=== PATIENT | male | born 1970 | race Caucasian/White ===

== ENCOUNTER → 2019-05-09 | Outpatient (CLI) | payer BC, OTHER ==
[~2019-05-09] MED LIST: AMOX-355 PO; HYDR-3454 PO; IBUP800T26 PO; LORA0.5T PO; METO50TA2 PO; RANI150C11 PO; TRAM50TA2 PO; ZLP5T PO
--- NOTE | 2019-05-09 12:23 | Diagnostic Imaging Report ---
PROCEDURE: US carotid duplex, bilateral. TECHNIQUE: Multiple real-time grayscale images were obtained over the carotid arteries in various projections, bilaterally. Additional spectral analysis and color Doppler duplex images were also obtained. INDICATION: CVA. Parameters based on the consensus panel Tsai-Scale and Doppler ultrasound criteria published April 2003, Radiology, Volume 229. DOPPLER (peak systolic velocity M/S Right Left CCA 0.77 1.05 ICA Proximal 0.66 0.78 ICA Mid 0.76 0.79 ICA Distal 0.58 0.71 RATIO 1.0 0.8 ECA 1.43 1.01 VERT 0.34 0.43 FINDINGS: There are no focally elevated velocities in either internal carotid artery. The ICA/CCA ratios are within normal limits, bilaterally. There is antegrade flow in the vertebral arteries, bilaterally. Grayscale images demonstrate minimal carotid plaque, bilaterally. IMPRESSION: Minimal bilateral carotid plaque however spectral analysis shows no evidence of a hemodynamically significant stenosis in either internal carotid artery. Dictated by: Dictated on workstation # [id number]
== END ==
LOC: RAD 10:08
PROVIDERS: ATTEND Internal Medicine Cardiovascular Disease
DX: I63.9 Cerebral infarction, unspecified (principal)
CPT/HCPCS: 93880

== ENCOUNTER → 2019-05-14 | Outpatient (CLI) | payer BC, OTHER | LOC: CARD 07:32 | PROVIDERS: ATTEND Internal Medicine Cardiovascular Disease | DX: I51.7 Cardiomegaly (principal); E78.5 Hyperlipidemia, unspecified; I10 Essential (primary) hypertension; Z86.79 Personal history of other diseases of the circulatory system; Z72.0 Tobacco use | CPT/HCPCS: 93306 ==

== ENCOUNTER → 2019-05-15 | Outpatient (CLI) | payer BC ==
[~2019-05-15] VITALS: Ht 178 cm; Wt 95.0 kg
[~2019-05-15] MED LIST changes: +CATHETER FLUSH 10 ML SYR IV PRN; +REGADENOSON 0.4 MG/5 ML SYR (LEXISCAN) IV ONE
[2019-05-15 09:10] VITALS: BP 162/116
[2019-05-15 09:12] VITALS: BP 166/115
--- NOTE | 2019-05-16 11:27 | STRESS TEST ---
DATE OF SERVICE: 05/15/2019 RESTING AND POST REGADENOSON TECHNETIUM-99M TETROFOSMIN SPECT CT IMAGING ORDERING PHYSICIAN: Dr. Nieves. PRIMARY PHYSICIAN: Dr. Humphries. CLINICAL DIAGNOSIS: Chest discomfort. Baseline images were carried out after injection of 10.43 mCi of technetium-99m Tetrofosmin. This was followed by 0.4 mg regadenoson and 31.7 mCi of technetium-99m Tetrofosmin for stress imaging. The electrocardiogram showed sinus rhythm at baseline and it did not change significantly with the regadenoson infusion. The patient noted some shortness of breath following regadenoson infusion, which resolved in a few minutes. Overall, he tolerated the procedure well. Review of images at rest and following stress does not indicate distinct perfusion defects consistent with significant myocardial ischemia or infarction. Gated images show normal global left ventricular systolic function with normal regional wall motion. Left ventricular ejection fraction is calculated to be 65%. Left ventricular end diastolic volume is 49 mL. TID is absent (1.11). CONCLUSIONS: 1. No evidence of any significant myocardial ischemia or infarction on this study. 2. Normal regional wall motion. 3. Normal global left ventricular systolic function with a calculated ejection fraction of 65%. Job ID: [id number] DocumentID: [id number] Dictated Date: 05/16/2019 09:05:30 Icu Manager Date: 05/16/2019 11:26:33 Dictated By: PRADEEP NIEVES MD, MA, FACP, FACC,
== END ==
LOC: CARD 07:12
PROVIDERS: ATTEND Internal Medicine Cardiovascular Disease
DX: I10 Essential (primary) hypertension (principal); E78.5 Hyperlipidemia, unspecified; R07.89 Other chest pain; Z86.79 Personal history of other diseases of the circulatory system; Z72.0 Tobacco use
CPT/HCPCS: 78452; 93017

== ENCOUNTER 2019-07-27 09:15 | Outpatient (CLI) | payer BC ==
[~2019-07-27] VITALS: Ht 177.8 cm; Wt 100.0 kg
[~2019-07-27 09:15] MED LIST changes: -CATHETER FLUSH 10 ML SYR IV PRN; -REGADENOSON 0.4 MG/5 ML SYR (LEXISCAN) IV ONE
[2019-07-27] MEDS ORDERED: MIRT30TA6 PO (09:29)
[2019-07-27] MEDS ORDERED: TRAM50TA3 PO (09:29)
[2019-07-27] MEDS ORDERED: IBUP-1773 PO (09:29)
[2019-07-27] MEDS ORDERED: ASPI-983 PO (09:29)
[2019-07-27] MEDS ORDERED: PANT40TA3 PO (09:29)
[2019-07-27] MEDS ORDERED: MTP100TCR PO (09:29)
== END 2019-07-27 09:30 | disposition home or self-care (01) ==
LOC: PREOP 09:15
PROVIDERS: ATTEND Surgery
DX: Z01.818 Encounter for other preprocedural examination (principal)

== ENCOUNTER → 2019-08-21 | Outpatient (CLI) | payer BC ==
[~2019-08-21] MED LIST changes: +ASPI-983 PO; +IBUP-1773 PO; +MIRT30TA6 PO; +MTP100TCR PO; +PANT40TA3 PO; +TRAM50TA3 PO
== END ==
LOC: SLEEP 13:01
PROVIDERS: ATTEND Nurse Practitioner
DX: G47.33 Obstructive sleep apnea (adult) (pediatric) (principal)

== ENCOUNTER 2019-08-28 05:35 | Outpatient (CLI) | payer BC ==
[~2019-08-28] VITALS: Ht 177.8 cm; Wt 100.0 kg
== END 2019-08-28 10:47 | disposition home or self-care (01) ==
LOC: PREOP 05:35
PROVIDERS: ATTEND Surgery
DX: Z01.818 Encounter for other preprocedural examination (principal)

== ENCOUNTER 2019-09-04 08:54 | Day surgery (SDC) | payer BC ==
[~2019-09-04] VITALS: Ht 177.8 cm; Wt 100.0 kg
[2019-09-04] MEDS ORDERED: LACTATED RINGERS 1,000 ML IV ONE (08:59)
[2019-09-04] MEDS ORDERED: PROPOFOL INJECTION 50 ML IV ONE (09:15)
[2019-09-04] MEDS ORDERED: MIDAZOLAM 2 MG/2 ML (VERSED) VIAL ONE (09:15)
[2019-09-04] MEDS ORDERED: LACTATED RINGERS 1,000 ML IV STA (09:21)
[2019-09-04 09:30] VITALS: BP 152/110
[2019-09-04] MEDS ORDERED: HURRICAINE EXT TUBE (BENZOCAINE) XX PRN (09:30)
[2019-09-04 10:10] VITALS: BP 138/87
--- NOTE | 2019-09-04 10:14 | Progress Note-Post Operative ---
Post-Operative Progess Note Surgeon (s)/Roto Rooter Operator (s) Surgeon CARMEN CHING DO Roto Rooter Operator: NA Pre-Operative Diagnosis GERD, Screening colonoscopy Post-Operative Diagnosis Reflux esophagitis with normal colon Procedure & Operative Findings Date of Procedure 09/04/19 Procedure Performed/Findings EGD with Biopsies and Colonoscopy Anesthesia Type per NET TECHNICAL ARCHITECT Estimated Blood Loss Estimated blood loss (mL): None Specimens/Packing Specimens Removed Biopsy of the Antrum and the GE Junction CARMEN CHING DO Sep 04, 2019 10:14
[2019-09-04 10:15] VITALS: BP 134/84
[2019-09-04] MEDS ORDERED: SUCR1TAB36 PO (10:16)
--- NOTE | 2019-09-04 10:17 | Discharge Inst-Simple/Standard ---
Discharge Inst-Standard Discharge Medications New, Converted or Re-Newed RX: Transmitted to Pharmacy Patient Instructions/Follow Up Plan of Care/Instructions/FU: 2 weeks Alec Activity as Tolerated: Yes Discharge Diet: Regular Diet CARMEN CHING DO Sep 04, 2019 10:17
[2019-09-04 10:20] VITALS: BP 134/86
[2019-09-04 10:25] VITALS: BP 134/86
[2019-09-04 10:50] VITALS: BP 132/80
--- NOTE | 2019-09-04 14:43 | OPERATIVE REPORT ---
DATE OF SERVICE: 09/04/2019 PREOPERATIVE DIAGNOSES: Gastroesophageal reflux disease and screening colonoscopy. POSTOPERATIVE DIAGNOSIS: Reflux esophagitis, normal colon. PROCEDURES PERFORMED: EGD with biopsies, colonoscopy. SURGEON: Carmen Michael DO. ANESTHESIA: Per PEDIATRIC CARE COORDINATOR. ESTIMATED BLOOD LOSS: None. COMPLICATIONS: None. INDICATIONS: The patient is a 49-year-old male with GERD symptoms and needing screening colonoscopy. He understands risks and benefits of the procedure and wished to proceed with the procedure. Consent was signed in the chart. DESCRIPTION OF PROCEDURE: The patient was taken to the endoscopy suite and placed in a left lateral recumbent position. Timeout was performed. Scope was inserted in the mouth, down the esophagus, stomach and into the duodenum without difficulty. There were no polyps, masses or ulcerations within the duodenum. Scope was slowly retracted back into the stomach where it was further insufflated. Biopsy of the antrum was obtained. There were no polyps, masses or ulcerations. Scope was retroflexed noting no other pathology. Scope was returned to its normal position, slowly withdrawn to the distal esophagus with changes of reflux esophagitis present. Biopsy of the GE junction was obtained. The scope was then slowly retracted back. There were no polyps, masses or ulcerations completely removed, the patient tolerated procedure well. Digital rectal exam was then performed. There were no palpable polyps, masses or ulcerations. Scope was inserted in the rectum, advanced all the way to cecum with minimal difficulty. Prep was adequate. Scope was then slowly retracted back. There were no polyps, masses or ulcerations within the cecum, ascending, transverse, descending and sigmoid colon. Once in the rectum, scope was retroflexed noting no other pathology. Scope was returned to its normal position, slowly withdrawn until completely removed. The patient tolerated procedure well without any complications. He was taken to the recovery room in stable condition. RECOMMENDATIONS: The patient will need a repeat colonoscopy in 10 years unless family history of colon cancer, which then be 5 years, any personal history of colon polyps, would be 5 years. If he has any issues before that, he should be reevaluated at that time. The patient with some reflux esophagitis, will continue Protonix and then add Carafate 1 gram four times a day. We will follow up in the office in 2 to 3 weeks and see how his symptoms are doing. Further recommendations pending biopsy results. Job ID: [id number] DocumentID: [id number] Dictated Date: 09/04/2019 10:15:58 Nurse Auditor Date: 09/04/2019 14:43:02 Dictated By: CARMEN MICHAEL DO
--- NOTE | 2019-09-05 08:01 | Anesthesia-General Post-Op ---
MAC Patient Condition Mental Status/LOC: Same as Preop Cardiovascular: Satisfactory Nausea/Vomiting: Absent Respiratory: Satisfactory Pain: Controlled Complications: Absent Post Op Complications Complications None Follow Up Care/Instructions Patient Instructions None needed. Anesthesiology Discharge Order Discharge Order Patient is doing well, no complaints, stable vital signs, no apparent adverse anesthesia problems. No complications reported per nursing. KAILNA MERCHANT CRNA Sep 05, 2019 08:01
--- OUTSIDE RECORDS SUMMARY | 2019-09-06 09:30 | XMS REPORT | Clinical Summary ---
Author Author User, Jeronimo Gill Organization Jacklyn Humphries DO, FACP Address Unknown Phone Allergies, Adverse Reactions, Alerts Allergy Name Reaction Description Start Date Severity Status Pr ovider XANAX confusion Critical Active Jacklyn Humphries DAYPRO Nausea and Vomiting Mild Active Jacklyn Humphries MORPHINE Hives and not able to breath Critical Active Jacklyn Humphries Conditions or Problems Problem Name Problem Code Onset Date Status Entry Date Provider Comment Standard Description Annotate HEALTH SCREENING V70.0 Resolved Jacklyn santoyo Routine general medical examination at a [facility] facility HYPOGONADISM 257.2 Resolved Jacklyn Humphries Other testicular hypofunction ANEMIA NOS 285.9 Resolved Jacklyn Humphries Anemia, unspecified FATIGUE 780.79 Active Jacklyn Humphries Other malaise and fatigue SMOKER 305.1 Active Jacklyn Humphries Tobacco use disorder HYPERSOMNIA 780.54 Active Jacklyn Humphries Hypersomnia, unspecified LIVER FUNCTION TESTS, ABNORMAL 794.8 Active 08/07 Jacklyn Humphries Nonspecific abnormal results of function study of liver HYPERCHOLESTEROLEMIA 272.0 Active Jacklyn Humphries Pure hypercholesterolemia 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 WHEEZING 786.07 Resolved Jacklyn Humphries Wheezing HYPERTENSION 401.1 Active Jacklyn Humphries Benign essential hypertension HEEL PAIN, LEFT 729.5 Active Jacklyn Almanzar er Pain in limb PRIMARY CENTRAL SLEEP APNEA 327.21 Active Jacklyn Humphries Primary central sleep apnea INSOMNIA 780.52 Active Jacklyn Humphries Insomnia, unspecified ERECTILE DYSFUNCTION, 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 07/22 Jacklyn Humphries Impotence of organic origin CHRONIC PAIN V15.89 Active Jacklyn Humphries Other specified personal history presenting hazards to health HEALTH SCREENING V70.0 Active Jacklyn mullen Routine general medical examination at a health care facility Medication List Medication Instructions Start Date Stop Date Generic Name NDC Status Provider Patient Instruction COZAAR 50 MG TAB 1 po daily LOSARTAN POTASSIUM 242812 79665 Active Jacklyn Humphries NORVASC 5 MG TAB 1 PO Daily AMLODIPINE BESYLATE 47970 302181 Active Kena Melara CIALIS 10 MG TABS 1 PO as directed TADALAFIL 548 35208979 No Longer Active Jacklyn Humphries ATIVAN 0.5 MG TAB 1/2 PO AT HS ONLY LORAZEPAM 64 487580942 No Longer Active Jacklyn Humphries AMBIEN 10 MG TAB 1 PO QHS prn ZOLPIDEM TARTRATE 99917221120 No Longer Active Jacklyn Humphries IBUPROFEN 800 MG TAB 1 po TID prn IBUPROFEN 009981741 30 Active Kena Melara ZANTAC 150 MG TAB 1 po TID RANITIDINE HCL 09852877195 Active Kena Melara REMERON 30 MG TABS 1 PO QHS MIRTAZAPINE 00259277818 A ctive Jacklyn Humphries TOPROL XL 50 MG [id number] 1 PO BID METOPROLOL SUCCINATE 17626595321 Active Jacklyn Humphries WELLBUTRIN SR 150 MG [id number] 1 PO BID BUPRO PION HCL 90496070254 No Longer Active Jacklyn Humphries ULTRAM 50 MG TAB 2 PO QID TRAMADOL HCL 47343661900 Ac tive Jacklyn Humphries ASPIRIN 81 MG TAB 1 PO daily ASPIRIN 37668705273 Active Jacklyn Humphries Vital Signs Date Name Value Unit Range Description blood pressure, diastolic - 8462-4 82 mm[Hg] BP marks blood pressure, systolic - 8480-6 130 mm[Hg] BP sys pulse rate E&M - 8867-4 64 /min H eart rate respiratory rate E&M - 9279-1 14 /min Resp rate temperature E&M 98.6 [degF] Body temp erature weight E&M - 3141-9 200 [lb_av] Weigh t Measured blood pressure, diastolic - 8462-4 80 mm[Hg] BP marks blood pressure, systolic - 8480-6 138 mm[Hg] BP sys pulse rate E&M - 8867-4 70 /min H eart rate respiratory rate E&M - 9279-1 14 /min Resp rate temperature E&M 98.6 [degF] Body temp erature weight E&M - 3141-9 195 [lb_av] Weigh t Measured blood pressure, diastolic - 8462-4 80 mm[Hg] BP marks blood pressure, systolic - 8480-6 130 mm[Hg] BP sys pulse rate E&M - 8867-4 72 /min H eart rate respiratory rate E&M - 9279-1 14 /min Resp rate weight E&M - 3141-9 195 [lb_av] Weigh t Measured blood pressure, diastolic - 8462-4 85 mm[Hg] BP marks blood pressure, systolic - 8480-6 160 mm[Hg] BP sys pulse rate E&M - 8867-4 84 /min H eart rate respiratory rate E&M - 9279-1 14 /min Resp rate temperature E&M 98.6 [degF] Body temp erature weight E&M - 3141-9 190 [lb_av] Weigh t Measured blood pressure, diastolic - 8462-4 86 mm[Hg] BP marks blood pressure, systolic - 8480-6 130 mm[Hg] BP sys pulse rate E&M - 8867-4 88 /min H eart rate respiratory rate E&M - 9279-1 14 /min Resp rate temperature E&M 98.6 [degF] Body temp erature weight E&M - 3141-9 195 [lb_av] Weigh t Measured blood pressure, diastolic - 8462-4 110 mm[Hg] BP marks blood pressure, systolic - 8480-6 148 mm[Hg] BP sys pulse rate E&M - 8867-4 84 /min H eart rate respiratory rate E&M - 9279-1 14 /min Resp rate temperature E&M 98.6 [degF] Body temp erature weight E&M - 3141-9 196 [lb_av] Weigh t Measured blood pressure, diastolic - 8462-4 90 mm[Hg] BP marks blood pressure, systolic - 8480-6 158 mm[Hg] BP sys pulse rate E&M - 8867-4 84 /min H eart rate respiratory rate E&M - 9279-1 14 /min Resp rate weight E&M - 3141-9 196 [lb_av] Weigh t Measured blood pressure, diastolic - 8462-4 80 mm[Hg] BP marks blood pressure, systolic - 8480-6 150 mm[Hg] BP sys pulse rate E&M - 8867-4 84 /min H eart rate respiratory rate E&M - 9279-1 14 /min Resp rate temperature E&M 98.6 [degF] Body temp erature weight E&M - 3141-9 195 [lb_av] Weigh t Measured blood pressure, diastolic - 8462-4 82 mm[Hg] BP marks blood pressure, systolic - 8480-6 130 mm[Hg] BP sys pulse rate E&M - 8867-4 72 /min H eart rate respiratory rate E&M - 9279-1 14 /min Resp rate temperature E&M 98.6 [degF] Body temp erature weight E&M - 3141-9 204 [lb_av] Weigh t Measured blood pressure, diastolic - 8462-4 92 mm[Hg] BP marks blood pressure, systolic - 8480-6 162 mm[Hg] BP sys pulse rate E&M - 8867-4 80 /min H eart rate respiratory rate E&M - 9279-1 12 /min Resp rate weight E&M - 3141-9 206 [lb_av] Weigh t Measured blood pressure, diastolic - 8462-4 80 mm[Hg] BP marks blood pressure, systolic - 8480-6 135 mm[Hg] BP sys pulse rate E&M - 8867-4 68 /min H eart rate respiratory rate E&M - 9279-1 14 /min Resp rate temperature E&M 98.6 [degF] Body temp erature weight E&M - 3141-9 205 [lb_av] Weigh t Measured Diagnostic Results Date Name Value Unit Range Description Clinical Lists Update: CBC,CMP,FLP,TSH - Chemistry Estimated Glomerular Filtration Rate (calc) 79 mL/ min/1.73m2 glucose, plasma fasting 97 mg/dL albumin, serum 4.6 g/dL alkaline phosphatase, serum 45 U/L urea nitrogen, blood 18 mg/dL calcium, serum 9.9 mg/dL chloride, serum 103 mmol/L cholesterol, serum 187 mg/dL cholesterol/HDL ratio, serum, percent 6.4 sodium, serum 138 mmol/L triglyceride, serum, fasting 262 mg/dL bilirubin, serum, total 0.4 mg/dL alanine aminotransferase (SGPT), serum 19 U/L aspartate aminotransferase (SGOT), serum 21 U/L protein, total, serum 7.1 g/dL potassium, serum 4.0 mmol/L LDL cholesterol, serum 106 mg/dL thyroid stimulating hormone, serum 3.34 u[iU]/mL HDL cholesterol, serum 29 mg/dL creatinine, serum 1.12 mg/dL carbon dioxide, venous blood 26 mmol/L Clinical Lists Update: CBC,CMP,FLP,TSH - Hematology platelet count 292 10*3/mm3 erythrocyte (RBC) count 4.77 10*6/mm3 leukocyte count, blood 9.3 10*3/mm3 mean corpuscular volume, RBC 91.3 fL red blood cell distribution width 12.8 % hemoglobin, blood 14.4 g/dL hematocrit, blood 43.6 % Encounters Code Encounter Date Provider Facility CPT-02746 Ofc Vst, Est Level III 19:45:23 INES Humphries DO, FACP CPT-67183 Ofc Vst, Est Level III 16:57:12 CDT Jacklyn S max Greyi Alphonso Humphries, DO, FACP CPT-18420 Ofc Vst, Est Level III 21:07:09 CDT Jacklyn S max Humphries Jacklyn S Humphries, DO, FACP CPT-31336 Ofc Vst, Est Level III 13:23:06 MASKING MACHINE OPERATOR Jacklyn S max Humphries Jacklyn S Humphries, DO, FACP CPT-46031 Ofc Vst, Est Level IV 17:29:48 MASKING MACHINE OPERATOR Jacklyn Sheri Humphries Jacklyn S Humphries, DO, FACP CPT-68677 Ofc Vst, Est Level III 16:43:59 MASKING MACHINE OPERATOR Jacklyn Alphonso Greyi Alphonso Humphries, DO, FACP CPT-62650 Ofc Vst, Est Level III 14:53:23 MASKING MACHINE OPERATOR Jacklyn S max Greyi S Humphries, DO, FACP CPT-87141 Ofc Vst, Est Level III 12:16:47 CDT Jacklyn S max Greyi S Humphries, DO, FACP CPT-84081 Ofc Vst, Est Level III 15:17:22 CDT Jacklyn S max Greyi S Humphries, DO, FACP CPT-42491 Ofc Vst, Est Level IV 17:16:46 CDT Jacklyn Sheri Greyi S Humphries, DO, FACP CPT-06809 Ofc Vst, Est Level III 10:06:40 CDT Jacklyn S max Kimbroughner Jacklyn S Humphries, DO, FACP CPT-24997 Ofc Vst, Est Level III 14:50:11 CDT Jacklyn S max Kimbroughner Jacklyn S Humphries, DO, FACP CPT-02427 Ofc Vst, Est Level IV 19:37:51 MASKING MACHINE OPERATOR Jacklyn Humphries [facility] Procedures Code Procedure Name Date Entry Date Standard Desc ription CPT-33826 Preventive, Est, (40-64) 16:40:26 CDT 12/16 CPT-65777 Preventive, New, (40-64) 14:23:03 MASKING MACHINE OPERATOR 07/30
--- OUTSIDE RECORDS SUMMARY | 2019-09-06 09:30 | XMS REPORT | Clinical Summary ---
[...] santoyo Routine general medical examination at a [facility] facility HYPOGONADISM 257.2 Resolved Jacklyn Humphries Other [...] MG TAB 1 po daily LOSARTAN POTASSIUM 892789 30135 Active Jacklyn Humphries NORVASC 5 MG TAB 1 PO Daily AMLODIPINE BESYLATE 01605 899611 Active Jacklyn Humphries CIALIS 10 MG TABS 1 PO as directed TADALAFIL 548 99010725 No Longer Active Jacklyn Humphries ATIVAN 0.5 MG TAB 1/2 PO AT HS ONLY LORAZEPAM 64 237588705 No Longer Active Jacklyn Humphries AMBIEN 10 MG TAB 1 PO QHS prn ZOLPIDEM TARTRATE 93224036473 No Longer Active Jacklyn Humphries IBUPROFEN 800 MG TAB 1 po TID prn IBUPROFEN 147464503 30 Active Jacklyn Humphries ZANTAC 150 MG TAB 1 po TID RANITIDINE HCL 59558942811 Active Kena Melara REMERON 30 MG TABS 1 PO QHS MIRTAZAPINE 60220307187 A ctive Jacklyn Humphries TOPROL XL 50 MG [id number]-TAL 1 PO BID METOPROLOL SUCCINATE 81003486919 Active Jacklyn Humphries WELLBUTRIN SR 150 MG [id number] 1 PO BID BUPRO PION HCL 74598526264 No Longer Active Jacklyn Humphries ULTRAM 50 MG TAB 2 PO QID TRAMADOL HCL 36036238801 Ac tive Jacklyn Humphries ASPIRIN 81 MG TAB 1 PO daily ASPIRIN 63833117622 Active Jacklyn Humphries Vital Signs Date Name Value Unit Range Description blood pressure, diastolic - 8462-4 80 mm[Hg] [...] % Encounters Code Encounter Date Provider Facility CPT-51234 Ofc Vst, Est Level III 16:57:12 CDT Jacklyn Humphries DO, FACP CPT-67164 Ofc Vst, Est Level III 21:07:09 CDT Jacklyn Humphries DO, FACP CPT-86216 Ofc Vst, Est Level III 13:23:06 CORPORATE STRATEGY INTERN Jacklyn Humphries DO, FACP CPT-29203 Ofc Vst, Est Level IV 17:29:48 CORPORATE STRATEGY INTERN Jacklyn Humphries DO, FACP CPT-75784 Ofc Vst, Est Level III 16:43:59 CORPORATE STRATEGY INTERN Jacklyn Alphonso Werner Humphries, DO, FACP CPT-36201 Ofc Vst, Est Level III 14:53:23 CORPORATE STRATEGY INTERN Jacklyn Alphonso Werner Humphries, DO, FACP CPT-95066 Ofc Vst, Est Level III 12:16:47 CDT Jacklyn Alphonso Werner Humphries, DO, FACP CPT-85779 Ofc Vst, Est Level III 15:17:22 CDT Jacklyn Alphonso Werner Humphries, DO, FACP CPT-86196 Ofc Vst, Est Level IV 17:16:46 CDT Jacklyn Sheri Werner Humphries, DO, FACP CPT-18902 Ofc Vst, Est Level III 10:06:40 CDT Jacklyn Werner Humphries, DO, FACP CPT-26167 Ofc Vst, Est Level III 14:50:11 CDT Jacklyn Alphonso Werner Humphries, DO, FACP CPT-89346 Ofc Vst, Est Level IV 19:37:51 CORPORATE STRATEGY INTERN Jacklyn Humphries [facility] Procedures Code Procedure Name Date Entry Date Standard Desc ription CPT-86099 Preventive, Est, (40-64) 16:40:26 CDT 12/16 CPT-77264 Preventive, New, (40-64) 14:23:03 CORPORATE STRATEGY INTERN 07/30
--- OUTSIDE RECORDS SUMMARY | 2019-09-06 09:30 | XMS REPORT | Clinical Summary ---
[...] santoyo Routine general medical examination at a [facility] facility HYPOGONADISM 257.2 Resolved Jacklyn Humphries Other [...] specified personal history presenting hazards to health Medication List Medication Instructions Start Date Stop Date Generic Name NDC Status Provider Patient Instruction COZAAR 50 MG TAB 1 po daily LOSARTAN POTASSIUM 576028 42755 Active Jacklyn Humphries NORVASC 5 MG TAB 1 PO Daily AMLODIPINE BESYLATE 71443 622111 Active Jacklynoskar Humphries CIALIS 10 MG TABS 1 PO as directed TADALAFIL 548 89990844 No Longer Active Jacklyn Humphries ATIVAN 0.5 MG TAB 1/2 PO AT HS ONLY LORAZEPAM 64 015384564 No Longer Active Jacklyn Humphries AMBIEN 10 MG TAB 1 PO QHS prn ZOLPIDEM TARTRATE 40560180494 No Longer Active Jacklyn Humphries IBUPROFEN 800 MG TAB 1 po TID prn IBUPROFEN 321472378 30 Active Jacklynoskar Humphries ZANTAC 150 MG TAB 1 po TID RANITIDINE HCL 82293646381 Active Kena Melara REMERON 30 MG TABS 1 PO QHS MIRTAZAPINE 02827816223 A ctive Jacklyn Humphries TOPROL XL 50 MG [id number] 1 PO BID METOPROLOL SUCCINATE 37597965295 Active Jacklynoskar Humphries WELLBUTRIN SR 150 MG FP52M-LDL 1 PO BID BUPRO PION HCL 70825589541 No Longer Active Jacklyn Humphries ULTRAM 50 MG TAB 2 PO QID TRAMADOL HCL 03675839664 Ac tive Jacklyn Humphries ASPIRIN 81 MG TAB 1 PO daily ASPIRIN 15808363386 Active Jacklyn Humphries Vital Signs Date Name [...] - 3141-9 205 [lb_av] Weigh t Measured blood pressure, diastolic - 8462-4 92 mm[Hg] BP marks blood pressure, systolic - 8480-6 142 mm[Hg] BP sys pulse rate E&M - 8867-4 80 /min H eart rate respiratory rate E&M - 9279-1 14 /min Resp rate Encounters Code Encounter Date Provider Facility CPT-63693 Ofc Vst, Est Level III 16:57:12 CDT Jacklyn S max Humphries DO, FACP CPT-31110 Ofc Vst, Est Level III 21:07:09 CDT Jacklyn S max Humphries DO, FACP CPT-93338 Ofc Vst, Est Level III 13:23:06 STRING TOP SEALER Jacklyn S max Humphries DO, FACP CPT-98412 Ofc Vst, Est Level IV 17:29:48 STRING TOP SEALER Jacklynoskar Humphries DO, FACP CPT-72044 Ofc Vst, Est Level III 16:43:59 STRING TOP SEALER Jacklyn S uzanne Humphries Jacklyn S Humphries, DO, FACP CPT-43572 Ofc Vst, Est Level III 14:53:23 STRING TOP SEALER Jacklyn Alphonso santana Humphries Jacklyn S Kristel, DO, FACP CPT-89961 Ofc Vst, Est Level III 12:16:47 CDT Jacklyn S max Kimbroughner Jacklyn S Kristel, DO, FACP CPT-43745 Ofc Vst, Est Level III 15:17:22 CDT Jacklyn S max Kimbroughner Jacklyn Alphonso Kristel, DO, FACP CPT-06426 Ofc Vst, Est Level IV 17:16:46 CDT Jacklyn Sheri berman Kristel Jacklyn S Kristel, DO, FACP CPT-26904 Ofc Vst, Est Level III 10:06:40 CDT Jacklyn Alphonso santana Humphries Jacklyn Werner Kristel, DO, FACP CPT-30127 Ofc Vst, Est Level III 14:50:11 CDT Jacklyn S max Werner Kristel, DO, FACP CPT-19921 Ofc Vst, Est Level IV 19:37:51 STRING TOP SEALER Jacklyn berman Kristel [facility] Procedures Code Procedure Name Date Entry Date Standard Desc ription CPT-76159 Cyrus Saldaña, (40-64) 14:23:03 STRING TOP SEALER 07/30
--- OUTSIDE RECORDS SUMMARY | 2019-09-06 09:30 | XMS REPORT | Clinical Summary ---
Author Author [facility] Organization [facility] Address Unknown Phone Unavailable Care Team Providers Care Licensed Midwife Name Role Phone Bry Bell MD PCP Source Comments Some departments are not documenting in the electronic medical record. If you d o not see the information that you expected, contact Release of Information in [facility] Information Management department at [phone] for further assistan ce in locating additional records.[facility] Allergies Not on File Medications Not on file Active Problems Not on file Social History Date Tobacco Use Types Packs/Day Years Used Never Assessed Sex Assigned at Date Recorded Not on file Industry Job Start Date Occupation Not on file Not on file Not on file Travel End Travel History Travel Start No recent travel history available. Last Filed Vital Signs Not on file Plan of Treatment Health Maintenance Due Date Last Done Comments DTAP/TDAP VACCINES (1 - 1980 Tdap) HIV SCREENING 1984 PHYSICAL (COMPREHENSIVE) 1987 EXAM INFLUENZA VACCINE 01/25/2019 COLORECTAL CANCER 2019 SCREENING SHINGLES RECOMBINANT 2019 VACCINE (1 of 2) Results Not on filefrom Last 3 Months
--- OUTSIDE RECORDS SUMMARY | 2019-09-06 09:31 | XMS REPORT | Clinical Summary ---
[...] santoyo Routine general medical examination at a [facility] HYPOGONADISM 257.2 Resolved Jacklyn Humphries Other [...] MG TAB 1 po daily LOSARTAN POTASSIUM 431686 68179 Active Jacklyn Humphries NORVASC 5 MG TAB 1 PO Daily AMLODIPINE BESYLATE 31715 710347 Active Jacklynoskar Humphries CIALIS 10 MG TABS 1 PO as directed TADALAFIL 548 39171965 No Longer Active Jacklyn Humphries ATIVAN 0.5 MG TAB 1/2 PO AT HS ONLY LORAZEPAM 64 830370112 No Longer Active Jacklyn Humphries AMBIEN 10 MG TAB 1 PO QHS prn ZOLPIDEM TARTRATE 50881026469 No Longer Active Jacklyn Humphries IBUPROFEN 800 MG TAB 1 po TID prn IBUPROFEN 377335217 30 Active Jacklynoskar Humphries ZANTAC 150 MG TAB 1 po TID RANITIDINE HCL 49526910731 Active Kena Melara REMERON 30 MG TABS 1 PO QHS MIRTAZAPINE 29373130223 A ctive Jacklyn Humphries TOPROL XL 50 MG [id number] 1 PO BID METOPROLOL SUCCINATE 53052344009 Active Jacklynoskra Humphries WELLBUTRIN SR 150 MG [id number] 1 PO BID BUPRO PION HCL 23189785098 No Longer Active Jacklyn Humphries ULTRAM 50 MG TAB 2 PO QID TRAMADOL HCL 86368471156 Ac tive Jacklyn Humphries ASPIRIN 81 MG TAB 1 PO daily ASPIRIN 72230092250 Active Jacklyn Humphries Vital Signs Date Name [...] rate Encounters Code Encounter Date Provider Facility CPT-48428 Ofc Vst, Est Level III 16:57:12 CDT Jacklyn S max Humphries DO, FACP CPT-10178 Ofc Vst, Est Level III 21:07:09 CDT Jacklyn S max Humphries DO, FACP CPT-00778 Ofc Vst, Est Level III 13:23:06 INSPECTOR SOLDERING Jacklyn S max Humphries DO, FACP CPT-64986 Ofc Vst, Est Level IV 17:29:48 INSPECTOR SOLDERING Jacklynoskar Humphries DO, FACP CPT-31326 Ofc Vst, Est Level III 16:43:59 INSPECTOR SOLDERING Jacklyn S uzanne Humphries Jacklyn S Humphries, DO, FACP CPT-78300 Ofc Vst, Est Level III 14:53:23 INSPECTOR SOLDERING Jacklyn Alphonso santana Humphries Jacklyn S Kristel, DO, FACP CPT-52598 Ofc Vst, Est Level III 12:16:47 CDT Jacklyn S max Kimbroughner Jacklyn S Kristel, DO, FACP CPT-23686 Ofc Vst, Est Level III 15:17:22 CDT Jacklyn S max Kimbroughner Jacklyn Alphonso Kristel, DO, FACP CPT-21904 Ofc Vst, Est Level IV 17:16:46 CDT Jacklyn Sheri berman Kristel Jacklyn S Kristel, DO, FACP CPT-30259 Ofc Vst, Est Level III 10:06:40 CDT Jacklyn Alphonso santana Humphries Jacklyn Werner Kristel, DO, FACP CPT-77723 Ofc Vst, Est Level III 14:50:11 CDT Jacklyn S max Werner Kristel, DO, FACP CPT-38405 Ofc Vst, Est Level IV 19:37:51 INSPECTOR SOLDERING Jacklyn berman Kristel [facility] Procedures Code Procedure Name Date Entry Date Standard Desc ription CPT-72691 Cyrus Saldaña, ([id number]) 14:23:03 INSPECTOR SOLDERING 07/30
--- OUTSIDE RECORDS SUMMARY | 2019-09-06 09:31 | XMS REPORT | Clinical Summary ---
[...] santoyo Routine general medical examination at a [facility] facility HYPOGONADISM 257.2 Resolved Jacklyn Humphries Other [...] MG TAB 1 po daily LOSARTAN POTASSIUM 205490 51211 Active Jacklyn Humphries NORVASC 5 MG TAB 1 PO Daily AMLODIPINE BESYLATE 83814 076063 Active Jacklynoskar Humphries CIALIS 10 MG TABS 1 PO as directed TADALAFIL 548 90182793 No Longer Active Jacklyn Humphries ATIVAN 0.5 MG TAB 1/2 PO AT HS ONLY LORAZEPAM 64 523175063 No Longer Active Jacklyn Humphries AMBIEN 10 MG TAB 1 PO QHS prn ZOLPIDEM TARTRATE 53203989415 No Longer Active Jacklyn Humphries IBUPROFEN 800 MG TAB 1 po TID prn IBUPROFEN 653106098 30 Active Jacklynoskar Humphries ZANTAC 150 MG TAB 1 po TID RANITIDINE HCL 48502548686 Active Kena Melara REMERON 30 MG TABS 1 PO QHS MIRTAZAPINE 35719911884 A ctive Jacklyn Humphries TOPROL XL 50 MG [id number] 1 PO BID METOPROLOL SUCCINATE 62666501540 Active Jacklynoskar Humphries WELLBUTRIN SR 150 MG [id number] 1 PO BID BUPRO PION HCL 11664300905 No Longer Active Jacklyn Humphries ULTRAM 50 MG TAB 2 PO QID TRAMADOL HCL 89407118110 Ac tive Jacklyn Humphries ASPIRIN 81 MG TAB 1 PO daily ASPIRIN 73154418698 Active Jacklyn Humphries Vital Signs Date Name [...] rate Encounters Code Encounter Date Provider Facility CPT-95904 Ofc Vst, Est Level III 16:57:12 CDT Jacklyn S max Humphries DO, FACP CPT-56756 Ofc Vst, Est Level III 21:07:09 CDT Jacklyn S max Humphries DO, FACP CPT-73627 Ofc Vst, Est Level III 13:23:06 PILLOW CLEANER Jacklyn S max Humphries DO, FACP CPT-58249 Ofc Vst, Est Level IV 17:29:48 PILLOW CLEANER Jacklynoskar Humphries DO, FACP CPT-52690 Ofc Vst, Est Level III 16:43:59 PILLOW CLEANER Jacklyn S uzanne Humphries Jacklyn S Humphrise, DO, FACP CPT-75266 Ofc Vst, Est Level III 14:53:23 PILLOW CLEANER Jacklyn Alphonso santana Humphries Jacklyn S Kristel, DO, FACP CPT-69637 Ofc Vst, Est Level III 12:16:47 CDT Jacklyn S max Kimbroughner Jacklyn S Kristel, DO, FACP CPT-22662 Ofc Vst, Est Level III 15:17:22 CDT Jacklyn S max Kimbroughner Jacklyn Alphonso Kristel, DO, FACP CPT-40228 Ofc Vst, Est Level IV 17:16:46 CDT Jacklyn Sheri berman Kristel Jacklyn S Kristel, DO, FACP CPT-09257 Ofc Vst, Est Level III 10:06:40 CDT Jacklyn Alphonso santana Humphries Jacklyn Werner Kristel, DO, FACP CPT-95135 Ofc Vst, Est Level III 14:50:11 CDT Jacklyn S max Werner Kristel, DO, FACP CPT-21605 Ofc Vst, Est Level IV 19:37:51 PILLOW CLEANER Jacklyn berman Kristel [facility] Procedures Code Procedure Name Date Entry Date Standard Desc ription CPT-96276 Cyrus Saldaña, (40-64) 14:23:03 PILLOW CLEANER 07/30
--- OUTSIDE RECORDS SUMMARY | 2019-09-06 09:31 | XMS REPORT | Clinical Summary ---
[...] santoyo Routine general medical examination at a [facility] facility HYPOGONADISM 257.2 Resolved Jacklyn [...] MG TAB 1 po daily LOSARTAN POTASSIUM 463018 00511 Active Jacklyn Humphries NORVASC 5 MG TAB 1 PO Daily AMLODIPINE BESYLATE 59707 833754 Active Jacklynoskar Humphries CIALIS 10 MG TABS 1 PO as directed TADALAFIL 548 22576758 No Longer Active Jacklyn Humphries ATIVAN 0.5 MG TAB 1/2 PO AT HS ONLY LORAZEPAM 64 383676192 No Longer Active Jacklyn Humphries AMBIEN 10 MG TAB 1 PO QHS prn ZOLPIDEM TARTRATE 21642935351 No Longer Active Jacklyn Humphries IBUPROFEN 800 MG TAB 1 po TID prn IBUPROFEN 817532806 30 Active Jacklynoskar Humphries ZANTAC 150 MG TAB 1 po TID RANITIDINE HCL 38919166682 Active Kena Melara REMERON 30 MG TABS 1 PO QHS MIRTAZAPINE 33291122519 A ctive Jacklyn Humphries TOPROL XL 50 MG [id number] 1 PO BID METOPROLOL SUCCINATE 77734351197 Active Jacklynoskar Humphries WELLBUTRIN SR 150 MG [id number] 1 PO BID BUPRO PION HCL 80011756703 No Longer Active Jacklyn Humphries ULTRAM 50 MG TAB 2 PO QID TRAMADOL HCL 06550389634 Ac tive Jacklyn Humphries ASPIRIN 81 MG TAB 1 PO daily ASPIRIN 66571717551 Active Jacklyn Humphries Vital Signs Date Name [...] rate Encounters Code Encounter Date Provider Facility CPT-23805 Ofc Vst, Est Level III 16:57:12 CDT Jacklyn S max Humphries DO, FACP CPT-01562 Ofc Vst, Est Level III 21:07:09 CDT Jacklyn S max Humphries DO, FACP CPT-53476 Ofc Vst, Est Level III 13:23:06 HISTORIOGRAPHY PROFESSOR Jacklyn S max Humphries DO, FACP CPT-21824 Ofc Vst, Est Level IV 17:29:48 HISTORIOGRAPHY PROFESSOR Jacklynoskar Humphries DO, FACP CPT-91417 Ofc Vst, Est Level III 16:43:59 HISTORIOGRAPHY PROFESSOR Jacklyn S uzanne Humphries Jacklyn S Humphries, DO, FACP CPT-85554 Ofc Vst, Est Level III 14:53:23 HISTORIOGRAPHY PROFESSOR Jacklyn Alphonso santana Humphries Jacklyn S Kristel, DO, FACP CPT-00392 Ofc Vst, Est Level III 12:16:47 CDT Jacklyn S max Kimbroughner Jacklyn S Kristel, DO, FACP CPT-79980 Ofc Vst, Est Level III 15:17:22 CDT Jacklyn S max Kimbroughner Jacklyn Alphonso Kristel, DO, FACP CPT-99357 Ofc Vst, Est Level IV 17:16:46 CDT Jacklyn Sheri berman Kristel Jacklyn S Kristel, DO, FACP CPT-18710 Ofc Vst, Est Level III 10:06:40 CDT Jacklyn Alphonso santana Humphries Jacklyn Werner Kristel, DO, FACP CPT-58696 Ofc Vst, Est Level III 14:50:11 CDT Jacklyn S max Werner Kristel, DO, FACP CPT-16164 Ofc Vst, Est Level IV 19:37:51 HISTORIOGRAPHY PROFESSOR Jacklyn berman Kristel [facility] Procedures Code Procedure Name Date Entry Date Standard Desc ription CPT-82239 Cyrus Saldaña, (40-64) 14:23:03 HISTORIOGRAPHY PROFESSOR 07/30
--- OUTSIDE RECORDS SUMMARY | 2019-09-06 09:31 | XMS REPORT | Clinical Summary ---
[...] santoyo Routine general medical examination at a [facility] facility HYPOGONADISM 257.2 Resolved Jacklyn Humphries [...] MG TAB 1 po daily LOSARTAN POTASSIUM 921908 00030 Active Jacklyn Humphries NORVASC 5 MG TAB 1 PO Daily AMLODIPINE BESYLATE 03837 605240 Active Jacklyn Humphries CIALIS 10 MG TABS 1 PO as directed TADALAFIL 548 09353388 No Longer Active Jacklyn Humphries ATIVAN 0.5 MG TAB 1/2 PO AT HS ONLY LORAZEPAM 64 436842155 No Longer Active Jacklyn Humphries AMBIEN 10 MG TAB 1 PO QHS prn ZOLPIDEM TARTRATE 54664874483 No Longer Active Jacklyn Humphries IBUPROFEN 800 MG TAB 1 po TID prn IBUPROFEN 439615715 30 Active Kena Melara ZANTAC 150 MG TAB 1 po TID RANITIDINE HCL 41028694650 Active Kena Melara REMERON 30 MG TABS 1 PO QHS MIRTAZAPINE 87217184611 A ctive Jacklyn Humphries TOPROL XL 50 MG [id number] 1 PO BID METOPROLOL SUCCINATE 22803108798 Active Jacklyn Humphries WELLBUTRIN SR 150 MG [id number] 1 PO BID BUPRO PION HCL 64379639323 No Longer Active Jacklyn Humphries ULTRAM 50 MG TAB 2 PO QID TRAMADOL HCL 75224249904 Ac tive Jacklyn Humphries ASPIRIN 81 MG TAB 1 PO daily ASPIRIN 05059906094 Active Jacklyn Humphries Vital Signs Date Name [...] % Encounters Code Encounter Date Provider Facility CPT-35188 Ofc Vst, Est Level III 19:45:23 INES Humphries DO, FACP CPT-21955 Ofc Vst, Est Level III 16:57:12 CDT Jacklyn S max Kimbroughner Jacklyn Alphonso Humphries, DO, FACP CPT-98166 Ofc Vst, Est Level III 21:07:09 CDT Jacklyn S max Kimbroughner Jacklyn S Humphries, DO, FACP CPT-99197 Ofc Vst, Est Level III 13:23:06 CYBER SECURITY CONSULTANT Jacklyn S max Kimbroughner Jacklyn S Humphries, DO, FACP CPT-99860 Ofc Vst, Est Level IV 17:29:48 CYBER SECURITY CONSULTANT Jacklyn Sheri Kimbroughner Jacklyn S Humphries, DO, FACP CPT-54463 Ofc Vst, Est Level III 16:43:59 CYBER SECURITY CONSULTANT Jacklyn S max Greyi S Humphries, DO, FACP CPT-13978 Ofc Vst, Est Level III 14:53:23 CYBER SECURITY CONSULTANT Jacklyn S max Greyi S Humphries, DO, FACP CPT-96884 Ofc Vst, Est Level III 12:16:47 CDT Jacklyn S max Greyi S Humphries, DO, FACP CPT-32250 Ofc Vst, Est Level III 15:17:22 CDT Jacklyn S max Greyi S Humphries, DO, FACP CPT-90514 Ofc Vst, Est Level IV 17:16:46 CDT Jacklyn Sheri Greyi S Humphries, DO, FACP CPT-47074 Ofc Vst, Est Level III 10:06:40 CDT Jacklyn S max Kimbroughner Jacklyn S Humphries, DO, FACP CPT-50884 Ofc Vst, Est Level III 14:50:11 CDT Jacklyn S javade Humphries Jacklyn S Humphries, DO, FACP CPT-11852 Ofc Vst, Est Level IV 19:37:51 CYBER SECURITY CONSULTANT Jacklyn Sheri Humphries [facility] Procedures Code Procedure Name Date Entry Date Standard Desc ription CPT-20765 Preventive, Est, (40-64) 16:40:26 CDT 12/16 CPT-81619 Preventive, New, (40-64) 14:23:03 CYBER SECURITY CONSULTANT 07/30
--- OUTSIDE RECORDS SUMMARY | 2019-09-06 09:31 | XMS REPORT | Clinical Summary ---
[...] santoyo Routine general medical examination at a [facility] facility HYPOGONADISM 257.2 Resolved Jacklyn Humphries [...] MG TAB 1 po daily LOSARTAN POTASSIUM 899233 56266 Active Jacklyn Humphries NORVASC 5 MG TAB 1 PO Daily AMLODIPINE BESYLATE 80042 574239 Active Jacklynoskar Humphries CIALIS 10 MG TABS 1 PO as directed TADALAFIL 548 87504677 No Longer Active Jacklyn Humphries ATIVAN 0.5 MG TAB 1/2 PO AT HS ONLY LORAZEPAM 64 643305627 No Longer Active Jacklyn Humphries AMBIEN 10 MG TAB 1 PO QHS prn ZOLPIDEM TARTRATE 23715785930 No Longer Active Jacklyn Humphries IBUPROFEN 800 MG TAB 1 po TID prn IBUPROFEN 668387541 30 Active Jacklynoskar Humphries ZANTAC 150 MG TAB 1 po TID RANITIDINE HCL 39406872624 Active Kena Melara REMERON 30 MG TABS 1 PO QHS MIRTAZAPINE 22426659350 A ctive Jacklyn Humphries TOPROL XL 50 MG [id number] 1 PO BID METOPROLOL SUCCINATE 81550538333 Active Jacklynoskar Humphries WELLBUTRIN SR 150 MG AD72O-DYY 1 PO BID BUPRO PION HCL 33919797949 No Longer Active Jacklyn Humphries ULTRAM 50 MG TAB 2 PO QID TRAMADOL HCL 31484347154 Ac tive Jacklyn Humphries ASPIRIN 81 MG TAB 1 PO daily ASPIRIN 12627390254 Active Jacklyn Humphries Vital Signs Date Name [...] pressure, diastolic - 8462-4 90 mm[Hg] BP mraks blood pressure, systolic - 8480-6 158 mm[Hg] [...] rate Encounters Code Encounter Date Provider Facility CPT-02381 Ofc Vst, Est Level III 16:57:12 CDT Jacklyn S max Humphries DO, FACP CPT-72969 Ofc Vst, Est Level III 21:07:09 CDT Jacklyn S max Humphries DO, FACP CPT-93719 Ofc Vst, Est Level III 13:23:06 MULTI OPERATION MACHINE OPERATOR Jacklyn S max Humphries DO, FACP CPT-83618 Ofc Vst, Est Level IV 17:29:48 MULTI OPERATION MACHINE OPERATOR Jacklynoskar Humphries DO, FACP CPT-94518 Ofc Vst, Est Level III 16:43:59 MULTI OPERATION MACHINE OPERATOR Jacklyn S uzanne Humphries Jacklyn S Humphries, DO, FACP CPT-41166 Ofc Vst, Est Level III 14:53:23 MULTI OPERATION MACHINE OPERATOR Jacklyn Alphonso santana Humphries Jacklyn S Kristel, DO, FACP CPT-86416 Ofc Vst, Est Level III 12:16:47 CDT Jacklyn S max Kimbroughner Jacklyn S Kristel, DO, FACP CPT-59544 Ofc Vst, Est Level III 15:17:22 CDT Jacklyn S max Kimbroughner Jacklyn Alphonso Kristel, DO, FACP CPT-28311 Ofc Vst, Est Level IV 17:16:46 CDT Jacklyn Sheri berman Kristel Jacklyn S Kristel, DO, FACP CPT-21055 Ofc Vst, Est Level III 10:06:40 CDT Jacklyn Alphonso santana Humphries Jacklyn Werner Kristel, DO, FACP CPT-87882 Ofc Vst, Est Level III 14:50:11 CDT Jacklyn S max Werner Kristel, DO, FACP CPT-27984 Ofc Vst, Est Level IV 19:37:51 MULTI OPERATION MACHINE OPERATOR Jacklyn berman Kristel [facility] Procedures Code Procedure Name Date Entry Date Standard Desc ription CPT-28864 Cyrsu Saldaña, (40-64) 14:23:03 MULTI OPERATION MACHINE OPERATOR 07/30
--- OUTSIDE RECORDS SUMMARY | 2019-09-06 09:31 | XMS REPORT | Clinical Summary ---
[...] santoyo Routine general medical examination at a [facility] facility HYPOGONADISM 257.2 Resolved Jacklyn Humphries Other [...] limb PRIMARY CENTRAL SLEEP APNEA 327.21 Active aJcklyn Humphries Primary central sleep apnea INSOMNIA 780.52 [...] MG TAB 1 po daily LOSARTAN POTASSIUM 656403 11509 Active Jacklyn Humphries NORVASC 5 MG TAB 1 PO Daily AMLODIPINE BESYLATE 48182 033693 Active Jacklyn Humphries CIALIS 10 MG TABS 1 PO as directed TADALAFIL 548 93641772 No Longer Active Jacklyn Humphries ATIVAN 0.5 MG TAB 1/2 PO AT HS ONLY LORAZEPAM 64 403226055 No Longer Active Jacklyn Humphries AMBIEN 10 MG TAB 1 PO QHS prn ZOLPIDEM TARTRATE 69000090635 No Longer Active Jacklyn Humphries IBUPROFEN 800 MG TAB 1 po TID prn IBUPROFEN 751805811 30 Active Jacklyn Humphries ZANTAC 150 MG TAB 1 po TID RANITIDINE HCL 67599984791 Active Kena Melara REMERON 30 MG TABS 1 PO QHS MIRTAZAPINE 31948119263 A ctive Jacklyn Humphries TOPROL XL 50 MG [id number] 1 PO BID METOPROLOL SUCCINATE 59568882374 Active Jacklyn Humphries WELLBUTRIN SR 150 MG ZZ37E-CIE 1 PO BID BUPRO PION HCL 13052469784 No Longer Active Jacklyn Humphries ULTRAM 50 MG TAB 2 PO QID TRAMADOL HCL 69739173151 Ac tive Jacklyn Humphries ASPIRIN 81 MG TAB 1 PO daily ASPIRIN 64547712860 Active Jacklyn Humphries Vital Signs Date Name [...] % Encounters Code Encounter Date Provider Facility CPT-12854 Ofc Vst, Est Level III 16:57:12 CDT Jacklyn Humphries DO, FACP CPT-04376 Ofc Vst, Est Level III 21:07:09 CDT Jacklyn Humphries DO, FACP CPT-38483 Ofc Vst, Est Level III 13:23:06 STAFFING OPERATIONS MANAGER Jacklyn Humphries DO, FACP CPT-80049 Ofc Vst, Est Level IV 17:29:48 STAFFING OPERATIONS MANAGER Jacklyn Humphries DO, FACP CPT-53196 Ofc Vst, Est Level III 16:43:59 STAFFING OPERATIONS MANAGER Jacklyn Alphonso Werner Humphries, DO, FACP CPT-27915 Ofc Vst, Est Level III 14:53:23 STAFFING OPERATIONS MANAGER Jacklyn Alphonso Werner Humphries, DO, FACP CPT-47879 Ofc Vst, Est Level III 12:16:47 CDT Jacklyn Alphonso Werner Humphries, DO, FACP CPT-90627 Ofc Vst, Est Level III 15:17:22 CDT Jacklyn Alphonso Werner Humphries, DO, FACP CPT-26500 Ofc Vst, Est Level IV 17:16:46 CDT Jacklyn Sheri Werner Humphries, DO, FACP CPT-03246 Ofc Vst, Est Level III 10:06:40 CDT Jacklyn Werner Humphries, DO, FACP CPT-19027 Ofc Vst, Est Level III 14:50:11 CDT Jacklyn Alphonso Werner Humphries, DO, FACP CPT-66727 Ofc Vst, Est Level IV 19:37:51 STAFFING OPERATIONS MANAGER Jacklyn Humphries [facility] Procedures Code Procedure Name Date Entry Date Standard Desc ription CPT-93643 Preventive, Est, (40-64) 16:40:26 CDT 12/16 CPT-27784 Preventive, New, (40-64) 14:23:03 STAFFING OPERATIONS MANAGER 07/30
--- OUTSIDE RECORDS SUMMARY | 2019-09-06 09:31 | XMS REPORT | Clinical Summary ---
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 [...] MG TAB 1 po daily LOSARTAN POTASSIUM 915150 04185 Active Jacklyn Humphries NORVASC 5 MG TAB 1 PO Daily AMLODIPINE BESYLATE 37880 805021 Active Jacklyn Humphries CIALIS 10 MG TABS 1 PO as directed TADALAFIL 548 18890529 No Longer Active Jacklyn Humphries ATIVAN 0.5 MG TAB 1/2 PO AT HS ONLY LORAZEPAM 64 881965761 No Longer Active Jacklyn Humphries AMBIEN 10 MG TAB 1 PO QHS prn ZOLPIDEM TARTRATE 20335174186 No Longer Active Jacklyn Humphries IBUPROFEN 800 MG TAB 1 po TID prn IBUPROFEN 053751270 30 Active Kena Melara ZANTAC 150 MG TAB 1 po TID RANITIDINE HCL 05035134864 Active Kena Melara REMERON 30 MG TABS 1 PO QHS MIRTAZAPINE 49525440641 A ctive Jacklyn Humphries TOPROL XL 50 MG [id number] 1 PO BID METOPROLOL SUCCINATE 96247545250 Active Jacklyn Humphries WELLBUTRIN SR 150 MG AN59A-XKK 1 PO BID BUPRO PION HCL 26299321185 No Longer Active Jacklyn Humphries ULTRAM 50 MG TAB 2 PO QID TRAMADOL HCL 75407847051 Ac tive Jacklyn Humphries ASPIRIN 81 MG TAB 1 PO daily ASPIRIN 44272641800 Active Jacklyn Humphries Vital Signs Date Name [...] % Encounters Code Encounter Date Provider Facility CPT-21139 Ofc Vst, Est Level III 16:57:12 CDT Jacklyn Humphries DO, FACP CPT-52773 Ofc Vst, Est Level III 21:07:09 CDT Jacklyn Humphries DO, FACP CPT-82563 Ofc Vst, Est Level III 13:23:06 BUSINESS ETHICS PROFESSOR Jacklyn Humphries DO, FACP CPT-83515 Ofc Vst, Est Level IV 17:29:48 BUSINESS ETHICS PROFESSOR Jacklyn Humphries DO, FACP CPT-81779 Ofc Vst, Est Level III 16:43:59 BUSINESS ETHICS PROFESSOR Jacklyn Alphonso Werner Humphries, DO, FACP CPT-44761 Ofc Vst, Est Level III 14:53:23 BUSINESS ETHICS PROFESSOR Jacklyn Alphonso Werner Humphries, DO, FACP CPT-80655 Ofc Vst, Est Level III 12:16:47 CDT Jacklyn Alphonso Werner Humphries, DO, FACP CPT-02723 Ofc Vst, Est Level III 15:17:22 CDT Jacklyn S max Werner Humphries, DO, FACP CPT-89280 Ofc Vst, Est Level IV 17:16:46 CDT Jacklyn Werner Humphries, DO, FACP CPT-97416 Ofc Vst, Est Level III 10:06:40 CDT Jacklyn Alphonso Werner Humphries, DO, FACP CPT-59702 Ofc Vst, Est Level III 14:50:11 CDT Jacklyn Alphonso Werner Humphries, DO, FACP CPT-88693 Ofc Vst, Est Level IV 19:37:51 BUSINESS ETHICS PROFESSOR Jacklyn Humphries [facility] Procedures Code Procedure Name Date Entry Date Standard Desc ription CPT-90502 Preventive, Est, (40-64) 16:40:26 CDT 12/16 CPT-88340 Preventive, New, (40-64) 14:23:03 BUSINESS ETHICS PROFESSOR 07/30
--- OUTSIDE RECORDS SUMMARY | 2019-09-06 09:31 | XMS REPORT | Clinical Summary ---
[...] santoyo Routine general medical examination at a [facility] facility HYPOGONADISM 257.2 Resolved Jacklyn Humphries Other testicular hypofunction ANEMIA NOS 285.9 Resolved Jacklyn Humphries Anemia, unspecified FATIGUE 780.79 Active Jacklyn Humphreis Other malaise and fatigue SMOKER 305.1 Active [...] MG TAB 1 po daily LOSARTAN POTASSIUM 765042 91510 Active Jacklyn Humphries NORVASC 5 MG TAB 1 PO Daily AMLODIPINE BESYLATE 04694 020638 Active Jacklynoskar Humphries CIALIS 10 MG TABS 1 PO as directed TADALAFIL 548 72078941 No Longer Active Jacklyn Humphries ATIVAN 0.5 MG TAB 1/2 PO AT HS ONLY LORAZEPAM 64 956093811 No Longer Active Jacklyn Humphries AMBIEN 10 MG TAB 1 PO QHS prn ZOLPIDEM TARTRATE 55814501832 No Longer Active Jacklyn Humphries IBUPROFEN 800 MG TAB 1 po TID prn IBUPROFEN 412266172 30 Active Jacklynoskar Humphries ZANTAC 150 MG TAB 1 po TID RANITIDINE HCL 46007102080 Active Kena Melara REMERON 30 MG TABS 1 PO QHS MIRTAZAPINE 56981900698 A ctive Jacklyn Humphries TOPROL XL 50 MG [id number] 1 PO BID METOPROLOL SUCCINATE 56510398697 Active Jacklynoskar Humphries WELLBUTRIN SR 150 MG LU66S-QHU 1 PO BID BUPRO PION HCL 93850818656 No Longer Active Jacklyn Humphries ULTRAM 50 MG TAB 2 PO QID TRAMADOL HCL 09958145026 Benjy Melara ASPIRIN 81 MG TAB 1 PO daily ASPIRIN 90405532939 Active Jacklyn Humphries Vital Signs Date Name [...] % Encounters Code Encounter Date Provider Facility CPT-57326 Ofc Vst, Est Level III 16:57:12 CDT Jacklyn S javade Humphries Jacklyn S Kristel, DO, FACP CPT-41241 Ofc Vst, Est Level III 21:07:09 CDT Jacklyn S javade Kristel Greyi S Humphries, DO, FACP CPT-18992 Ofc Vst, Est Level III 13:23:06 SOLAR DESIGNER Jacklyn S javade Kristel Kimbroughner, DO, FACP CPT-37805 Ofc Vst, Est Level IV 17:29:48 SOLAR DESIGNER Jacklyn Wade antonella Greyi S Humphries, DO, FACP CPT-95168 Ofc Vst, Est Level III 16:43:59 SOLAR DESIGNER Jacklyn S javade Kristel Villasenor S Humphries, DO, FACP CPT-39544 Ofc Vst, Est Level III 14:53:23 SOLAR DESIGNER Jacklyn S javade Kristel Greyi S Humphries, DO, FACP CPT-59278 Ofc Vst, Est Level III 12:16:47 CDT Jacklyn S udanisnne Humphries Jacklyn S Kristel, DO, FACP CPT-45155 Ofc Vst, Est Level III 15:17:22 CDT Jacklyn S javade Humphries Jacklyn S Humphries, DO, FACP CPT-59339 Ofc Vst, Est Level IV 17:16:46 CDT Jacklyn Humphries DO, FACP CPT-98240 Ofc Vst, Est Level III 10:06:40 CDT Jacklyn Alphonso Humphries DO, FACP CPT-87180 Ofc Vst, Est Level III 14:50:11 CDT Jacklyn S max Humphries DO, FACP CPT-93194 Ofc Vst, Est Level IV 19:37:51 SOLAR DESIGNER Jacklyn [facility] Procedures Code Procedure Name Date Entry Date Standard Desc ription CPT-61545 Cyrus Saldaña, (40-64) 14:23:03 SOLAR DESIGNER 07/30
--- OUTSIDE RECORDS SUMMARY | 2019-09-06 09:32 | XMS REPORT | Clinical Summary ---
[...] santoyo Routine general medical examination at a [facility] HYPOGONADISM 257.2 Resolved Jacklyn Humphries [...] Primary central sleep apnea INSOMNIA 780.52 Active Jacklny Humphries Insomnia, unspecified ERECTILE DYSFUNCTION, ORGANIC 607.84 [...] MG TAB 1 po daily LOSARTAN POTASSIUM 792794 42758 Active Jacklyn Humphries NORVASC 5 MG TAB 1 PO Daily AMLODIPINE BESYLATE 02396 875129 Active Jacklyn Humphries CIALIS 10 MG TABS 1 PO as directed TADALAFIL 548 76577144 No Longer Active Jacklyn Humphries ATIVAN 0.5 MG TAB 1/2 PO AT HS ONLY LORAZEPAM 64 968606560 No Longer Active Jacklyn Humphries AMBIEN 10 MG TAB 1 PO QHS prn ZOLPIDEM TARTRATE 58348528524 No Longer Active Jacklyn Humphries IBUPROFEN 800 MG TAB 1 po TID prn IBUPROFEN 406193089 30 Active Jacklyn Humphries ZANTAC 150 MG TAB 1 po TID RANITIDINE HCL 25300437884 Active Kena Melara REMERON 30 MG TABS 1 PO QHS MIRTAZAPINE 25956715483 A ctive Jacklyn Humphries TOPROL XL 50 MG [id number] 1 PO BID METOPROLOL SUCCINATE 86237355214 Active Jacklyn Humphries WELLBUTRIN SR 150 MG [id number] 1 PO BID BUPRO PION HCL 61210102659 No Longer Active Jacklyn Humphries ULTRAM 50 MG TAB 2 PO QID TRAMADOL HCL 11247292066 Ac tive Jacklyn Humphries ASPIRIN 81 MG TAB 1 PO daily ASPIRIN 15727209426 Active Jacklyn Humphries Vital Signs Date Name [...] % Encounters Code Encounter Date Provider Facility CPT-79886 Ofc Vst, Est Level III 16:57:12 CDT Jacklyn Humphries DO, FACP CPT-59211 Ofc Vst, Est Level III 21:07:09 CDT Jacklyn Humphries DO, FACP CPT-03063 Ofc Vst, Est Level III 13:23:06 [employer] Jacklyn Humphries DO, FACP CPT-73521 Ofc Vst, Est Level IV 17:29:48 [employer] Jacklyn Humphries DO, FACP CPT-06295 Ofc Vst, Est Level III 16:43:59 [employer] Jacklyn Alphonso Werner Humphries, DO, FACP CPT-93650 Ofc Vst, Est Level III 14:53:23 [employer] Jacklyn Alphonso Werner Humphries, DO, FACP CPT-60889 Ofc Vst, Est Level III 12:16:47 CDT Jacklyn Alphonso Werner Humphries, DO, FACP CPT-28300 Ofc Vst, Est Level III 15:17:22 CDT Jacklyn Alphonso Werner Humphries, DO, FACP CPT-58652 Ofc Vst, Est Level IV 17:16:46 CDT Jacklyn Sheri Werner Humphries, DO, FACP CPT-58550 Ofc Vst, Est Level III 10:06:40 CDT Jacklyn Werner Humphries, DO, FACP CPT-84138 Ofc Vst, Est Level III 14:50:11 CDT Jacklyn Alphonso Werner Humphries, DO, FACP CPT-25874 Ofc Vst, Est Level IV 19:37:51 TE[employer] Jacklyn Humphries [facility] Procedures Code Procedure Name Date Entry Date Standard Desc ription CPT-21996 Preventive, Est, (40-64) 16:40:26 CDT 12/16 CPT-67079 Preventive, New, (40-64) 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
--- OUTSIDE RECORDS SUMMARY | 2019-09-06 09:32 | XMS REPORT | Clinical Summary ---
[...] santoyo Routine general medical examination at a [facility] HYPOGONADISM 257.2 Resolved Jacklyn Humphries [...] Generic Name NDC Status Provider Patient Instruction LOTRISONE 0.05-1 % CREAM Apply to affected area on R leg BID for 7 days CLOTRIMAZOLE-BETAMETHASONE 83494570741 Active M scotty Humphries COZAAR 50 MG TAB 1 po daily LOSARTAN POTASSIUM 082186 09885 Active Jacklyn Humphries NORVASC 5 MG TAB 1 PO Daily AMLODIPINE BESYLATE 93425 882803 Active Kena Melara CIALIS 10 MG TABS 1 PO as directed TADALAFIL 548 34064375 No Longer Active Jacklyn Humphries ATIVAN 0.5 MG TAB 1/2 PO AT HS ONLY LORAZEPAM 64 531502578 No Longer Active Jacklyn Humphries AMBIEN 10 MG TAB 1 PO QHS prn ZOLPIDEM TARTRATE 22625599746 No Longer Active Jacklyn Humphries IBUPROFEN 800 MG TAB 1 po TID prn IBUPROFEN 841716926 30 Active Kena Melara ZANTAC 150 MG TAB 1 po TID RANITIDINE HCL 26079890645 Active Kena Melara REMERON 30 MG TABS 1 PO QHS MIRTAZAPINE 07901381762 A ctive Jacklyn Humphries TOPROL XL 50 MG [id number] 1 PO BID METOPROLOL SUCCINATE 27457308689 Active Kena Melara WELLBUTRIN SR 150 MG [id number] 1 PO BID BUPRO PION HCL 60270115839 No Longer Active Jacklyn Humphries ULTRAM 50 MG TAB 2 PO QID TRAMADOL HCL 85061601313 Ac tive Jacklyn Humphries ASPIRIN 81 MG TAB 1 PO daily ASPIRIN 24542097503 Active Jacklyn Humphries Vital Signs Date Name Value Unit Range Description blood pressure, diastolic - 8462-4 78 mm[Hg] BP marks blood pressure, systolic - 8480-6 130 mm[Hg] BP sys pulse rate E&M - 8867-4 76 /min H eart rate respiratory rate E&M [...] - 3141-9 206 [lb_av] Weigh t Measured Diagnostic Results Date [...] % Encounters Code Encounter Date Provider Facility CPT-24042 Ofc Vst, Est Level III 17:53:46 CDT Jacklyn S max Humphries Jacklyn Alphonso Humphries, DO, FACP CPT-40399 Ofc Vst, Est Level III 19:45:23 CDT Jacklyn S javade Humphries Jacklyn S Humphries, DO, FACP CPT-14939 Ofc Vst, Est Level III 16:57:12 CDT Jacklyn S max Humphries Jacklyn S Humphries, DO, FACP CPT-27702 Ofc Vst, Est Level III 21:07:09 CDT Jacklyn S max Humphries Jacklyn S Humphries, DO, FACP CPT-01675 Ofc Vst, Est Level III 13:23:06 TONGUE CARRIER Jacklyn S max Humphries Jacklyn S Humphries, DO, FACP CPT-59940 Ofc Vst, Est Level IV 17:29:48 TONGUE CARRIER Jacklyn Sheri Humphries Jacklyn S Humphries, DO, FACP CPT-68285 Ofc Vst, Est Level III 16:43:59 TONGUE CARRIER Jacklyn S max Kimbroughner Jacklyn S Humphries, DO, FACP CPT-28866 Ofc Vst, Est Level III 14:53:23 TONGUE CARRIER Jacklyn S max Kimbroughner Jacklyn S Humphries, DO, FACP CPT-31526 Ofc Vst, Est Level III 12:16:47 CDT Jacklyn S max Kimbroughner Jacklyn S Humphries, DO, FACP CPT-59083 Ofc Vst, Est Level III 15:17:22 CDT Jacklyn S max Humphries Jacklyn S Uhmphries, DO, FACP CPT-63631 Ofc Vst, Est Level IV 17:16:46 CDT Jacklyn Sheri Kimbroughner Jacklyn S Humphries, DO, FACP CPT-35590 Ofc Vst, Est Level III 10:06:40 CDT Jacklyn S max Humphries Jacklyn S Humphries, DO, FACP CPT-60517 Ofc Vst, Est Level III 14:50:11 CDT Jacklyn Humphries DO, JENSEN CPT-15222 Ofc Vst, Est Level IV 19:37:51 TONGUE CARRIER Jacklyn [facility] Procedures Code Procedure Name Date Entry Date Standard Desc ription CPT-91706 Preventive, Est, (40-64) 16:40:26 CDT 12/16 CPT-10782 Preventive, New, (40-64) 14:23:03 TONGUE CARRIER 07/30
--- OUTSIDE RECORDS SUMMARY | 2019-09-06 09:32 | XMS REPORT ---
Author Author Jeronimo ABREU Organization [facility] Address [address] [place] [address] Care Team Providers Care Scallop Binder Name Role Phone GLORIA ABREU Unavailable PROBLEMS Unknown Problems ALLERGIES Substance Reaction Event Type Date Status Morphine Sulfate Unknown Drug Allergy Jun, Active Daypro Unknown Drug Allergy Jun, Active SOCIAL HISTORY No smoking Hx information available PLAN OF CARE VITAL SIGNS Height 71 in 2016-07-21 Weight 213.2 lbs 2016-07-21 Temperature 97.2 degrees Fahrenheit 2016-07-21 Heart Rate 78 bpm 2016-07-21 Respiratory Rate 20 2016-07-21 BMI 29.73 kg/m2 2016-07-21 Blood pressure systolic 126 mmHg 2016-07-21 Blood pressure diastolic 90 mmHg 2016-07-21 MEDICATIONS Medication Instructions Dosage Frequency Start Date End Date Duration S tatus Augmentin 875-125 MG Orally every 12 hrs 1 tablet 12h Jun, 017 4 Jul, 2016 10 day(s) Active Tramadol HCl 50 MG Activ e Amlodipine Besylate 5 MG Orally Once a day 1 tablet 24h Active Norvasc 5 MG Orally Once a day 1 tablet 24h Active Ibuprofen 800 MG Orally Three times a day 1 tablet 8h Active Metoprolol Succinate ER 50 MG Orally BID 1 tablet 12h Active RESULTS No Results PROCEDURES Procedure Date Ordered Related Diagnosis Body Site Office Visit, Est Pt., Level 3 Jul 21, 2016 IMMUNIZATIONS No Known Immunizations
--- OUTSIDE RECORDS SUMMARY | 2019-09-06 09:32 | XMS REPORT ---
Author Author Jeronimo LEACH [facility] eClinical[employer] Address Unknown Phone Unavailable Care Team Providers Care Trial Judge Name Role Phone SHANTELL LEACH CP Unavailable Allergies, Adverse Reactions, Alerts Substance Reaction Event Type Morphine Sulfate Info Not Available Drug Allergy Daypro Info Not Available Drug Allergy Problems Problem Type Condition Code Onset Dates Condition Statu s Assessment Dental caries K02.9 Active Medications Medication Code System Code Instructions Start Date End Date Status Dosage Norvasc [facility] [address]-67 5 MG Orally Once a day 1 tablet Metoprolol Succinate ER [facility] [address]-02 50 MG Orally BID 1 tablet Amlodipine Besylate [facility] [address]-12 5 MG Orally Once a day 1 tablet Ibuprofen [facility] [address]-24 800 MG Orally Three times a day 1 tablet Tramadol HCl [facility] [address]-68 50 MG Orally not defined Procedures Procedure Coding System Code Date Dental no charge CPT-4 D0099 January 14, 2016 Vital Signs Date/Time: January 14, 2016 Blood Pressure Diastolic 93 mmHg Blood Pressure Systolic 141 mmHg Height 71 in Results No Known Results Summary Purpose eClinicalWorks Submission
--- OUTSIDE RECORDS SUMMARY | 2019-09-06 09:32 | XMS REPORT | Continuity of Care Document ---
Author Organization Unknown Address Unknown Phone Unavailable Allergies Active Description Code Type Severity Reaction Onset Reported/Identified Relationship to Patient Clinical Status Yes morphine [id number] Drug Allergy Unknown HIVES 06/03/2014 Yes oxaprozin [id number] Drug Allergy Unknown NAUSEA 06/03/2014 Medications There is no data. Problems Date Dx Coded Attending Type Code Diagnosis Diagnosed By 06/21/2014 NEIDA VILLALBA, WEST P Ot 470 06/21/2014 NEIDA VILLALBA, WEST P Ot 780.79 06/21/2014 NEIDA VILLALBA, WEST P Ot 786.03 06/21/2014 NEIDA VILLALBA, WEST P Ot V72.63 06/21/2014 NEIDA VILLALBA, WEST P Ot V72.81 06/21/2014 NEIDA VILLALBA, WEST P Ot V72.83 06/21/2014 NEIDA VILLALBA, WEST P Ot V74 .8 06/21/2014 NEIDA VILLALBA, WEST P Ot 470 DEVIATED NASAL SEPTUM 06/21/2014 NEIDA VILLALBA, WEST P Ot 478 .0 HYPERTRPH NASAL TURBINAT 06/24/2014 NEIDA VILLALBA, WEST P Ot 470 06/24/2014 NEIDA VILLALBA, WEST P Ot 780.79 06/24/2014 NEIDA VILLALBA, WEST P Ot 786.03 06/24/2014 NEIDA VILLALBA, WEST P Ot V72.63 06/24/2014 NEIDA VILLALBA, WEST P Ot V72.81 06/24/2014 NEIDA VILLALBA, WEST P Ot V72.83 06/24/2014 NEIDA VILLALBA, WEST P Ot V74 .8 10/06/2014 NEIDA VILLALBA, WEST P Ot 470 10/06/2014 NEIDA VILLALBA, WEST P Ot 780.79 10/06/2014 NEIDA VILLALBA, WEST P Ot 786.03 10/06/2014 NEIDA VILLALBA, WEST P Ot V72.63 10/06/2014 NEIDA VILLALBA, WEST P Ot V72.81 10/06/2014 NEIDA VILLALBA, WEST P Ot V72.83 10/06/2014 NEIDA VILLALBA, WEST P Ot V74 .8 05/03/2019 NEIDA VILLALBA, WEST P Ot 470 DEVIATED NASAL SEPTUM 05/03/2019 WEST CARRASQUILLO MD P Ot 780.79 OTH MALAISE FATIGUE 05/03/2019 WEST CARRASQUILLO MD P Ot 786.03 APNEA 05/03/2019 WEST CARRASQUILLO MD Ot V72.63 PRE-PROCEDURAL LABORATORY EXAMINATION 05/03/2019 WEST CARRASQUILLO MD Ot V72.81 [id number] CARDIOVASCULAR 05/03/2019 WEST CARRASQUILLO MD Ot V72.83 EXAM PRE-OPERATIVE NEC 05/03/2019 WEST CARRASQUILLO MD Ot V74 .8 SCREEN-BACTERIAL DIS NEC 05/04/2019 WEST CARRASQUILLO MD P Ot 470 DEVIATED NASAL SEPTUM 05/04/2019 WEST CARRASQUILLO MD P Ot 780.79 OTH MALAISE FATIGUE 05/04/2019 WEST CARRASQUILLO MD Ot 786.03 APNEA 05/04/2019 WEST CARRASQUILLO MD Ot V72.63 PRE-PROCEDURAL LABORATORY EXAMINATION 05/04/2019 WEST CARRASQUILLO MD Ot V72.81 SGIC-UDL-[id number] CARDIOVASCULAR 05/04/2019 WEST CARRASQUILLO MD Ot V72.83 EXAM PRE-OPERATIVE NEC 05/04/2019 WEST CARRASQUILLO MD Ot V74 .8 SCREEN-BACTERIAL DIS NEC 05/09/2019 WEST CARRASQUILLO MD Ot 470 DEVIATED NASAL SEPTUM 05/09/2019 WEST CARRASQUILLO MD P Ot 780.79 OTH MALAISE FATIGUE 05/09/2019 WEST CARRASQUILLO MD P Ot 786.03 APNEA 05/09/2019 WEST CARRASQUILLO MD Ot V72.63 PRE-PROCEDURAL LABORATORY EXAMINATION 05/09/2019 WEST CARRASQUILLO MD Ot V72.81 PZQS-IHP-ZLRHNBERT CARDIOVASCULAR 05/09/2019 WEST CARRASQUILLO MD Ot V72.83 EXAM PRE-OPERATIVE NEC 05/09/2019 WEST CARRASQUILLO MD P Ot V74 .8 SCREEN-BACTERIAL DIS NEC 05/11/2019 ОЛЬГА VILLALBA FACC, PRADEEP FACP CCDS Ot I63.9 CEREBRAL INFARCTION, UNSPECIFIED 05/15/2019 WEST CARRASQUILLO MD Ot 470 DEVIATED NASAL SEPTUM 05/15/2019 WEST CARRASQUILLO MD Ot 780.79 OTH MALAISE FATIGUE 05/15/2019 WEST CARRASQUILLO MD Ot 786.03 APNEA 05/15/2019 WEST CARRASQUILLO MD Ot V72.63 PRE-PROCEDURAL LABORATORY EXAMINATION 05/15/2019 WEST CARRASQUILLO MD Ot V72.81 UULF-QFF-YOPPSWURD CARDIOVASCULAR 05/15/2019 WEST CARRASQUILLO MD Ot V72.83 EXAM PRE-OPERATIVE NEC 05/15/2019 WEST CARRASQUILLO MD Ot V74 .8 SCREEN-BACTERIAL DIS NEC 05/15/2019 ОЛЬГА ROMEO, ALI FACP CCDS Ot I63.9 CEREBRAL INFARCTION, UNSPECIFIED 05/17/2019 ОЛЬГА ROMEO, ALI FACP CCDS Ot E78.5 HYPERLIPIDEMIA, UNSPECIFIED 05/17/2019 ОЛЬГА VILLALBA FACC, ALI FACP CCDS Ot I10 ESSENTIAL (PRIMARY) HYPERTENSION 05/17/2019 ОЛЬГА VILLALBA [facility], ALI FACP CCDS Ot I51.7 CARDIOMEGALY 05/17/2019 ОЛЬГА VILLALBA [facility], ALI FACP CCDS Ot Z72.0 TOBACCO USE 05/17/2019 ОЛЬГА VILLALBA [facility], ALI FACP CCDS Ot Z86.79 PERSONAL HISTORY OF OTHER DISEASES OF 06/28/2019 ОЛЬГА ROMEOC, ALI FACP CCDS Ot I63.9 CEREBRAL INFARCTION, UNSPECIFIED 06/28/2019 ОЛЬГА VILLALBA [facility], ALI FACP CCDS Ot E78.5 HYPERLIPIDEMIA, UNSPECIFIED 06/28/2019 ОЛЬГА VILLALBA [facility], ALI FACP CCDS Ot I10 ESSENTIAL (PRIMARY) HYPERTENSION 06/28/2019 ОЛЬГА VILLALBA [facility], ALI FACP CCDS Ot I51.7 CARDIOMEGALY 06/28/2019 ОЛЬГА VILLALBA [facility], ALI FACP CCDS Ot Z72.0 TOBACCO USE 06/28/2019 ОЛЬГА VILLALBA [facility], ALI FACP CCDS Ot Z86.79 PERSONAL HISTORY OF OTHER DISEASES OF 06/28/2019 ОЛЬГА ROMEO, ALI FACP CCDS Ot E78.5 HYPERLIPIDEMIA, UNSPECIFIED 06/28/2019 ОЛЬГА VILALLBA [facility], ALI FACP CCDS Ot I10 ESSENTIAL (PRIMARY) HYPERTENSION 06/28/2019 ОЛЬГА VILLALBA [facility], ALI FACP CCDS Ot R07.89 OTHER CHEST PAIN 06/28/2019 ОЛЬГА ROMEO, ALI FACP CCDS Ot Z72.0 TOBACCO USE 06/28/2019 ОЛЬГА [facility], [facility]I FACP CCDS Ot Z86.79 PERSONAL HISTORY OF OTHER DISEASES OF 07/25/2019 CARMEN CHING DO Ot Z01.818 ENCOUNTER FOR OTHER PREPROCEDURAL EXAMIN 07/27/2019 CARMEN CHING DO Ot Z01.818 ENCOUNTER FOR OTHER PREPROCEDURAL EXAMIN 07/27/2019 CARMEN CHING DO Ot Z01.818 ENCOUNTER FOR OTHER PREPROCEDURAL EXAMIN 08/28/2019 CARMEN CHING DO Ot Z01.818 ENCOUNTER FOR OTHER PREPROCEDURAL EXAMIN Procedures There is no data. Results There is no data. Encounters ACCT No. Visit Date/Time Discharge Status Pt. Type Provider Facility Loc./Unit Complaint [id number] 09/04/2019 08:54:00 11:00:00 DIS Outpatient CARMEN CHING DO [facility] ENDO SCREENING/GERD [id number] 08/28/2019 05:35:00 10:47:00 DIS Outpatient CARMEN CHING DO [facility] PREOP COLONOSCOPY/EGD [id number] 08/21/2019 13:01:00 23:59:59 CLS Outpatient MAURA GONZALEZ APRN [facility] SLEEP AWA G47.33 [id number] 07/27/2019 09:15:00 09:30:00 DIS Outpatient CHING CARMEN ERWIN [facility] PREOP COLONOSCOPY/EGD [id number] 05/15/2019 08:00:00 23:59:59 CLS Preadmit PRADEEP ROLON MD, FACC, FACP CCDS [facility] CARD CHEST DISCOMFOR T [id number] 05/15/2019 07:12:00 23:59:59 CLS Outpatient PRADEEP ROLON MD, FACCP CC DS [facility] CARD CHEST DISCOMFORT,HYPERLIPIDEMIA,TOBACCO USER [id number] 05/14/2019 07:32:00 23:59:59 CLS Outpatient PRADEEP ROLON MD, FACCP CC DS [facility] CARD CHEST DISCOMFOR T [id number] 05/09/2019 10:08:00 23:59:59 CLS Outpatient PRADEEP ROLON MD, FACCP CC DS [facility] RAD H/O CVA [id number] 07/12/2014 21:00:00 015 23:59:59 CLS Preadmit NEIDA VILLALBA, WEST Lemus [facility] SLEEP SLEEP APNEA, EXCESSIVE DAYTIME SLEEPINESS [id number] 06/21/2014 08:23:00 014 14:20:00 DIS Outpatient WEST CARRASQUILLO MD [facility] SDC DEVIATED SEPTUM;DAYTIME FATIQUE;APNEA SPELLS [id number] 06/03/2014 09:02:00 014 23:59:59 CLS Outpatient WEST CARRASQUILLO MD [facility] PREOP DEVIATED SEPTUM;DAYTIME FATIQUE;APNEA SPELLS
--- OUTSIDE RECORDS SUMMARY | 2019-09-06 09:32 | XMS REPORT ---
Author Author Jeronimo ABREU Organization [facility] Address [address] [place] [address] Care Team Providers Care Assembler Camper Name Role Phone GLORIA ABREU Unavailable PROBLEMS Type Condition ICD9-CM Code [id number] Code Onset Dates Condition S tatus SNOMED Code Problem Sciatic leg pain M54.30 Active 230 08969 ALLERGIES Substance Reaction Event Type Date Status Morphine Sulfate Unknown Drug Allergy Mar, Active Daypro Unknown Drug Allergy Mar, Active ENCOUNTERS Encounter Location Date Diagnosis [facility] [address] [address] Mar, Acute bacterial conjunctivit is of both eyes H10.33 ; Abrasion of left thumb, initial encounter S60.312A and Local infection of the skin and subcutaneous tissue, unspecified L08.9 [facility] [address] [address] Jul, Sciatic leg pain M54.30 [facility] [address] [place] [id number] [place] [phone] Jun, Acute recurrent frontal sinu sitis J01.11 [facility] [address] [place] [id number] Dec, Dental caries K02.9 [facility] [address] [place] [id number] [place] [phone] Nov, Dental examination Z01.20 [facility] [address] [place] [phone] October, Crushing injury of finger of left hand, initial encounter S67.22XA and Finger nail contusion, initial encounter S60.10XA IMMUNIZATIONS No Known Immunizations SOCIAL HISTORY Never Assessed REASON FOR VISIT eye c/o, PT reports his eyes turned redness and some crustys. -Bernabe CLARK PLAN OF CARE VITAL SIGNS Height 71 in 2018-04-21 Weight 216 lbs 2018-04-21 Temperature 98.0 degrees Fahrenheit 2018-04-21 Heart Rate 74 bpm 2018-04-21 Respiratory Rate 20 2018-04-21 Oximetry 95 % 2018-04-21 BMI 30.12 kg/m2 2018-04-21 Blood pressure systolic 138 mmHg 2018-04-21 Blood pressure diastolic 78 mmHg 2018-04-21 MEDICATIONS Medication Instructions Dosage Frequency Start Date End Date Duration S tatus Ibuprofen 800 MG Orally Three times a day 1 tablet 8h Active Tramadol HCl 50 MG Activ e Metoprolol Succinate ER 50 MG Orally BID 1 tablet 12h Active Norvasc 5 MG Orally Once a day 1 tablet 24h Active Keflex 500 mg Orally 4 times a day 1 capsule 6h Mar, Apr, 10 day(s) Active Losartan Potassium Activ e Amlodipine Besylate 5 MG Orally Once a day 1 tablet 24h Active Cyclobenzaprine HCl 10 mg Orally 2 times a day 1 tablet as needed 1 2h Jul, Not-Taking Mirtazapine Active RESULTS No Results PROCEDURES No Known procedures INSTRUCTIONS MEDICATIONS ADMINISTERED No Known Medications MEDICAL (GENERAL) HISTORY Type Description Date Medical History hypertension Surgical History tonsillectomy Surgical History cholecystectomy Hospitalization History [facility]
--- OUTSIDE RECORDS SUMMARY | 2019-09-06 09:32 | XMS REPORT ---
Author Author Jeronimo ABREU Organization [facility] Address [address] [place] [address] Care Team Providers Care Laundry Operator Wash Room Name Role Phone GLORIA ABREU Unavailable PROBLEMS Type Condition ICD9-CM Code [id number] Code Onset Dates Condition S tatus SNOMED Code Problem Sciatic leg pain M54.30 Active 230 63471 ALLERGIES Substance Reaction Event Type Date Status Morphine Sulfate Unknown Drug Allergy Jul, Active Daypro Unknown Drug Allergy Jul, Active ENCOUNTERS Encounter Location Date Diagnosis [facility] [address] [phone] Jul, Sciatic leg pain M54.30 [facility] [address] [address] Jun, Acute recurrent frontal sinu sitis J01.11 [facility] [id number] [place] [phone] Dec, Dental caries K02.9 [facility] [address] [address] Nov, Dental examination Z01.20 [facility] [address] [address] October, Crushing injury of finger of left hand, initial encounter S67.22XA and Finger nail contusion, initial encounter S60.10XA IMMUNIZATIONS Vaccine Route Administration Date Status TORADOL (IM) 60 MG/2ML (UP TO 15 MG) IM Intramuscular Aug 24 18 Administered SOCIAL HISTORY Never Assessed REASON FOR VISIT back pain Pt c/o L lower side back pain for 2 weeks, states gets this sometimes through the years and usually gets better within a couple of weeks, but this ti me nothing is helping EDUARDO Carlos PLAN OF CARE VITAL SIGNS Height 71 in 2017-08-24 Weight 215.6 lbs 2017-08-24 Temperature 97.9 degrees Fahrenheit 2017-08-24 Heart Rate 76 bpm 2017-08-24 Respiratory Rate 20 2017-08-24 BMI 30.07 kg/m2 2017-08-24 Blood pressure systolic 118 mmHg 2017-08-24 Blood pressure diastolic 86 mmHg 2017-08-24 MEDICATIONS Medication Instructions Dosage Frequency Start Date End Date Duration S tatus Ibuprofen 800 MG Orally Three times a day 1 tablet 8h Active Norvasc 5 MG Orally Once a day 1 tablet 24h Active Metoprolol Succinate ER 50 MG Orally BID 1 tablet 12h Active Amlodipine Besylate 5 MG Orally Once a day 1 tablet 24h Active Tramadol HCl 50 MG Activ e Mirtazapine Active Losartan Potassium Activ e PredniSONE 20 mg Orally Once a day 2 tablets 24h Jul, Aug, 05 days Active Cyclobenzaprine HCl 10 mg Orally 2 times a day 1 tablet as needed 1 2h Jul, Active RESULTS No Results PROCEDURES Procedure Date Ordered Result Body Site TORADOL (IM) 60 MG/2ML (UP TO 15 MG) Aug 24, 2017 THER/PROPH/DIAG INJ, SC/IM Aug 24, 2017 INSTRUCTIONS MEDICATIONS ADMINISTERED No Known Medications MEDICAL (GENERAL) HISTORY Type Description Date Medical History hypertension Surgical History tonsillectomy Surgical History cholecystectomy Hospitalization History [facility]
== END 2019-09-04 11:00 | disposition home or self-care (01) ==
LOC: ENDO 08:54
PROVIDERS: ATTEND Surgery
DX: Z12.11 Encounter for screening for malignant neoplasm of colon (principal); K21.0 Gastro-esophageal reflux disease with esophagitis; I10 Essential (primary) hypertension; E66.9 Obesity, unspecified; F17.210 Nicotine dependence, cigarettes, uncomplicated; Z68.31 Body mass index [BMI] 31.0-31.9, adult; Z79.82 Long term (current) use of aspirin; Z79.899 Other long term (current) drug therapy; Z88.5 Allergy status to narcotic agent; Z88.8 Allergy status to other drugs, medicaments and biological substances; Z90.49 Acquired absence of other specified parts of digestive tract; Z83.3 Family history of diabetes mellitus; Z83.6 Family history of other diseases of the respiratory system